=== PATIENT | female | born 1970 | race Caucasian/White ===

== ENCOUNTER → 2016-05-10 | Outpatient (CLI) | payer BC ==
[~2016-05-10] MED LIST: BACTRIM DS 8001 TAB PO; BACTROBAN 22GM22 GM TP; CEPHALEXIN500 M1 PO; LORTAB 5/500 501 TAB PO; NO HOME MEDICATIONS
== END ==
LOC: MC.RAD 09:00
DX: Z12.31 Encounter for screening mammogram for malignant neoplasm of breast (principal); N63 Unspecified lump in breast

== ENCOUNTER → 2016-05-13 | Outpatient (CLI) | payer BC | LOC: MC.RAD 09:09 | DX: D24.2 Benign neoplasm of left breast (principal) ==

== ENCOUNTER → 2017-07-17 | Outpatient (CLI) | payer OTHER | LOC: MC.RAD 10:20 | DX: Z12.31 Encounter for screening mammogram for malignant neoplasm of breast (principal); N63.10 Unspecified lump in the right breast, unspecified quadrant ==

== ENCOUNTER → 2017-07-20 | Outpatient (CLI) | payer OTHER | LOC: MC.RAD 13:27 | DX: N63.10 Unspecified lump in the right breast, unspecified quadrant (principal); N60.01 Solitary cyst of right breast ==

== ENCOUNTER 2020-09-16 17:07 | Emergency (ER) | payer BC ==
[~2020-09-16] VITALS: Ht 165.1 cm; Wt 77.3 kg
[2020-09-16 17:24] VITALS: TEMP 97.5
[2020-09-16 17:44] LABS: COLLECTION METHOD CLEAN CATCH
[2020-09-16 18:02] LABS: BASO % 0.5 % (0.0-2.0); EOS # 0.1 (0.0-0.7); EOS % 1.8 % (0-4.0); GRAN # 4.5 (1.4-6.5); GRAN % 61.7 % (42.2-75.2); LYMPH # 2.2 (1.2-3.4); LYMPH % 29.9 % (20.0-51.0); MEAN CELL VOLUME 87 fl (80.0-100.0); MEAN CORPUSCULAR HEMOGLOBIN 29 pg (27.0-31.0); MEAN CORPUSCULAR HGB CONC 33 g/dl (33.0-37.0); MEAN PLATELET VOLUME 9.1 fl (7.4-10.4); MONO # 0.4 (0.1-0.6); PLATELET COUNT 225 K/mm3 (130-400); RED BLOOD COUNT 4.46 M/mm3 (4.10-5.30); REDCELL DISTRIBUTION WIDTH-CV 12.9 % (11.5-14.5)
[2020-09-16 18:09] LABS: AMORPHOUS CRYSTAL Present /uL; MUCOUS Present /lpf; PH 6 (5-8); URINE APPEARANCE Cloudy; URINE BACTERIA Rare /hpf; URINE BILIRUBIN Negative (NEGATIVE); URINE BLOOD 3+ (NEGATIVE); URINE COLOR Yellow; URINE GLUCOSE Negative (NEGATIVE); URINE KETONE Negative (NEGATIVE); URINE LEUKOCYTE ESTERASE Negative (NEGATIVE); URINE NITRATE Negative (NEGATIVE); URINE PROTEIN(semi-quant) 1+ (NEGATIVE); URINE RBC >50 /hpf; URINE UROBILINOGEN Negative (NEGATIVE)
[2020-09-16 18:17] LABS: BILIRUBIN,TOTAL 0.2 mg/dL (0.0-1.0); C-REACTIVE PROTEIN 0.7 mg/dL (0.0-0.9); CALCIUM 8.7 mg/dL (8.4-10.2); CREATININE, serum 0.82 (0.52-1.25); POTASSIUM 3.5 mmol/L (3.4-5.0); TOTAL PROTEIN 6.7 gm/dL (6.4-8.2)
[2020-09-16] MEDS ORDERED: ULTRAM 50MG TAB50 MG PO (19:00)
[2020-09-16] MEDS ORDERED: OMNICEF 300MG300 MG PO (19:00)
[2020-09-16 19:20] VITALS: BP 121/82; PULSE 71
== END 2020-09-16 19:22 | disposition home or self-care (01) ==
LOC: COL.ER 17:07
PROVIDERS: Nurse Practitioner Primary Care
DX: N39.0 Urinary tract infection, site not specified (principal)
CPT/HCPCS: J1885; J2270; J7030

== ENCOUNTER 2020-09-18 17:00 | Observation (INO) | payer BC ==
[~2020-09-18] VITALS: Ht 165.1 cm; Wt 77.3 kg
[~2020-09-18 17:00] MED LIST changes: +OMNICEF 300MG300 MG PO; +ULTRAM 50MG TAB50 MG PO
[2020-09-18 18:06] LABS: COLLECTION METHOD CLEAN CATCH
[2020-09-18 18:13] LABS: MUCOUS Present /lpf; PH 5 (5-8); URINE APPEARANCE Hazy; URINE BACTERIA Rare /hpf; URINE BILIRUBIN Negative (NEGATIVE); URINE BLOOD Negative (NEGATIVE); URINE COLOR Yellow; URINE GLUCOSE Negative (NEGATIVE); URINE KETONE Trace (NEGATIVE); URINE LEUKOCYTE ESTERASE Trace (NEGATIVE); URINE NITRATE Negative (NEGATIVE); URINE PROTEIN(semi-quant) Negative (NEGATIVE); URINE UROBILINOGEN Negative (NEGATIVE)
--- NOTE | 2020-09-18 21:07 | NUR ---
Pt. arrived to the floor. Pt. is A&OX3, assessment complete. INT to rt. ac. patent. Pt. denies further needs, call light within reach.
[2020-09-18 21:38] VITALS: BP 131/77; PULSE 73; TEMP 98.4
[2020-09-19] VITALS (8 sets, daily range): BP systolic 107–137; BP diastolic 57–74; PULSE 63–83; TEMP 97.9–99.6
--- NOTE | 2020-09-19 08:00 | NUR ---
Pt assessment complete. Pt is laying in bed upon entry, pain is tolerable at this time. Dr. Hallman was in to speak to patient, updated with POC.
--- NOTE | 2020-09-19 09:03 | NUR ---
Pt assessment complete. Dr. Hallman in to see patient. Pt denies any n/v, pain controlled at this time. Left for procedure at this time.
--- NOTE | 2020-09-19 13:32 | NUR ---
Discharge instructions and paperwork reviewed with patient. All questions answered at this time. IV to RAC dc'd catheter tip intact.
--- NOTE | 2020-09-19 14:09 | NUR ---
Pt walked out of facility at this time.
== END 2020-09-19 14:09 | disposition home or self-care (01) ==
LOC: COL.ER 17:00 → SURG 18:34
PROVIDERS: Physician Assistant; ADMIT Urology
DX: N13.2 Hydronephrosis with renal and ureteral calculous obstruction (principal); M19.90 Unspecified osteoarthritis, unspecified site; Z79.899 Other long term (current) drug therapy
CPT/HCPCS: C1769; C2617; G0378; J0690; J1885; J2270; J2405; J2704; J3010; J7030; Q9967

== ENCOUNTER 2020-12-08 16:51 | Emergency (ER) | payer BC ==
[2020-12-08 17:14] VITALS: BP 122/79; PULSE 89
== END 2020-12-08 17:21 | disposition left against medical advice (07) ==
LOC: COL.ER 16:51
DX: R69 Illness, unspecified (principal)

== ENCOUNTER 2021-08-13 01:02 | Emergency (ER) | payer BC ==
[~2021-08-13] VITALS: Ht 165.1 cm; Wt 77.3 kg
[2021-08-13] MEDS ORDERED: ROXICODONE 55 MG/TAB PO (02:02)
[2021-08-13] MEDS ORDERED: ZOFRAN ODT4 MG PO (02:02)
[2021-08-13 02:12] VITALS: BP 127/84; PULSE 78; TEMP 98
== END 2021-08-13 02:12 | disposition home or self-care (01) ==
LOC: COL.ER 01:02
DX: N23 Unspecified renal colic (principal); Z90.49 Acquired absence of other specified parts of digestive tract; Z87.442 Personal history of urinary calculi
CPT/HCPCS: J1170

== ENCOUNTER → 2022-06-02 | Outpatient (CLI) | payer BC ==
[~2022-06-02] MED LIST changes: +ROXICODONE 55 MG/TAB PO; +ZOFRAN ODT4 MG PO
== END ==
LOC: MC.RAD 08:30
DX: N60.11 Diffuse cystic mastopathy of right breast (principal)

== ENCOUNTER → 2022-07-20 | Outpatient (CLI) | payer BC | LOC: COL.RAD 10:15 | DX: K44.9 Diaphragmatic hernia without obstruction or gangrene (principal); K21.00 Gastro-esophageal reflux disease with esophagitis, without bleeding ==